=== PATIENT | female | born 1980 | race African-American/Black ===

== ENCOUNTER 2018-07-11 13:12 | Emergency (ER) | payer OTHER ==
[~2018-07-11] VITALS: Ht 167.6 cm; Wt 68.0 kg
[~2018-07-11 13:12] MED LIST: CYCLOBENZAPRINE10 MG PO; IBUPROFEN 800800 MG PO; NORCO 5-325 TA1 EACH PO
[2018-07-11] MEDS ORDERED: FLEXERIL PO (14:26)
[2018-07-11] MEDS ORDERED: IBUPROFEN 400400 M2 PO (14:26)
== END 2018-07-11 15:12 | disposition home or self-care (01) ==
LOC: ER 13:12
DX: M54.5 Low back pain (principal); F17.210 Nicotine dependence, cigarettes, uncomplicated; Z91.013 Allergy to seafood